=== PATIENT | male | born 1960 | race American Indian/Alaskan Native ===

== ENCOUNTER 2017-12-09 07:59 | Emergency (ER) | payer MEDICAID ==
[2017-12-09 08:07] VITALS: BMI 23.4
--- NOTE | 2017-12-09 08:07 | ED PDOC ---
Arrival/HPI - General Chief Complaint: Chest Pain Time Seen by Provider: 12/09/17 08:03 Historian: Patient, EMS - History of Present Illness Narrative History of Present Illness (Text): 12/09/17 08:17 pt p/w + 1 day onset of left chest pain, + sob, similar to his prior COPD exacerbation; pt states in addition, as he was getting up to go obtain his methadone this morning, pt accidentally slipped while walking down a flight of stairs and falling nearly half of those steps; pt states that made the left sided chest pain worse; pt denied radiation of chest pain; pt states pain is now severe, pt denied pre/post LOC, pt states no neck pain, no fever/chills/ sweats, no new coughing, no wheezing, no abd pain, no n/v, no numbness/tingling , no urinary/bowel changes, no sick contact, no travel; pt + mild dizziness/ lightheadedness, no LOC; pt is here for further eval pt's without other complaints PCP: Dr Alatorre ([place]) ID doctor as well; last viral load was undetectable (~ 3months ago) pt quit smoking some years ago pt is on methadone program Time/Duration: 24 hours Symptom Onset: Sudden Symptom Course: Unchanged Quality: Tightness, Stabbing Severity Level: Severe Activities at Onset: Other (walking) Context: Exertion, Home Past Medical History - Provider Review Nursing Documentation Reviewed: Yes - Travel History Have you recently traveled outside [place] w/in the past 3 mons?: No - Past History Past History: No Previous - Infectious Disease Hx of Infectious Diseases: None - Tetanus Immunization Tetanus Immunization: Unknown Family/Social History - Physician Review Nursing Documentation Reviewed: Yes Family/Social History: No Known Family HX Smoking Status: Former Smoker Hx Alcohol Use: No Hx Substance Use: Yes Hx Substance Use Treatment: Yes (on methadone) Allergies/Home Meds Allergies/Adverse Reactions: Allergies No Known Allergies Allergy (Verified 12/09/17 08:06) Review of Systems - Review of Systems Constitutional: Fatigue Eyes: Normal ENT: Normal Respiratory: SOB. absent: Cough Cardiovascular: Chest Pain Gastrointestinal: Normal Genitourinary Male: Normal Musculoskeletal: Normal Skin: Normal Neurological: Dizziness Endocrine: Normal Hemo/Lymphatic: Normal Physical Exam - Physical Exam Narrative Physical Exam (Text): 12/09/17 08:22 General: alert/awake, GCS = 15, oriented x 3, resting in bed, uncomfortable, cooperative, interactive; mild distress due to pain Head: NC/AT EYE: PERRLA, EOMI, sclera anicteric, no nystagmus, no photophobia; visual field intact b/l Facial: WNL Oral: uvula/tongue are midline, no exudate/lesions, no drooling/stridor, no dysphonia; intact dentitions; mild dry oral mucosa NECK: intact ROM, no midline tenderness, no nuchal rigidity, no meningeal signs ; no step off Chest: CTA b/l, no w/r/r; no tachypenia, no accessory muscle use noted; decr BS noted Chest Wall: faint left chest wall tenderness, no gross deformities, no crepitus , no lesions/rashes noted Cardiac: +S1, +S2, no m/r/r, no tachycardia Abdominal: +BS, soft/nd/nt, well nourished patient; no masses/rebound/guarding/ rigidity; no fountain's sign, no mcburney's point tenderness Extremities: intact ROM, strength 5/5 grossly intact in all limbs, neurovasc intact b/l; + ambulatory; reflex +2/2; no pitting edema noted b/l, no garth's sign b/l BACK: no step off, no midline tenderness, NO crepitus, no gross deformities noted; Intact ROM SKIN: cap refill < 1 sec, no ulcerations, no petechiae, no rashes; no gross pallor NEURO: CNII-XII WNL, no facial asymmetries, no slurr speech, oriented x 3 NIH stroke scale ~ 0 Psych: normal insight, normal affect; follows command with ease Vital Signs Reviewed: Yes Vital Signs Temp Pulse Pulse Resp BP BP Pulse Ox 12/09/17 11:37 98.0 F 81 19 98 12/09/17 10:16 80 20 116/81 94 L 12/09/17 08:18 89 109/73 12/09/17 08:17 98.0 F 91 H 18 109/73 93 L Temperature: Afebrile Blood Pressure: Normal Pulse: Regular Respiratory Rate: Normal Appearance: Positive for: Well-Appearing, Uncomfortable. No: Ill-Appearing, Unkept Pain Distress: Mild Mental Status: Positive for: Alert and Oriented X 3 - Systems Exam Head: Present: Atraumatic, Normocephalic Medical Decision Making ED Course and Treatment: 12/09/17 08:05 Impression: left chest pain, sob, fall down a flight of steps i have consider all the differential diagnosis regarding pt's chief medical complaints/clinical findings, including but are not limited to: left chest pain , sob, fall down a flight of steps A/P: left chest pain, sob, fall down a flight of steps - xray - labs - acs eval - supportive care - observe/reevaluation 12/09/17 09:25 pt is requesting methadone, but is informed that the Emergency department at [facility] does not offer methadone pt is deciding on what to do after prolonged discussion, pt is now willing to stay and receive treatment pt is made aware that once he is admitted, for his medical complaints, that the inpatient doctors should be able to prescribe patient methadone; pt expressed understanding, and is now willing to stay for further eval/exam nursing was unable to place an iv, i was able to place on with pt's verbal consent to his right EJ; however was unable to obtain blood work. Both nursing staff and myself attempted to withdraw blood but were unsuccessful. Plan is to hydrate patient and attempt again. I obtained right EJ IV (20gauge), pt tolerated the procedure well 12/09/17 10:45 dental laboratory assistant present in emergency room also attempted but failed to obtain blood work. I and the nurse spoke with patient, recommending femural vein stick due to difficulty obtaining line and by withdrawing blood from large vein, who should be successful. Patient refused, and becoming angry and agitated. He states "you guys keep poking me and I don't feel well." Continues to request Methadone throughout this interaction. States he needs to eat and have Methadone to have blood test done. 12/09/17 11:34 Patient remains angry, agitated and belligerent. He is asking for IV to be withdrawn and states he wants to leave. However, patient is refusing to sign out against medical advise. He states "I am not signing out against medical advise, I am signing out against your advise." Patient threatening to litigate/ alm me. pt states he still needs his methadone and he doesnt feel well. Patient subsequently walked out of the emergency room. The patient is choosing to leave against medical advice. I have personally explained to the patient that choosing to do so may result in permanent bodily harm or . I have discussed at great length that without further evaluation and monitoring there may be unforeseen circumstances and/or deterioration causing permanent bodily harm or as a result of their choice. The patient is alert, oriented, and shows the mental capacity to make clear decisions regarding the patients health care at this time. The patient continues to wish to leave against medical advice. In light of the patients decision to leave against medical advice, follow-up has been arranged and the patient is aware of the importance to following up as instructed. The patient has been advised that they should return to the emergency room immediately if they change their mind at any time, or if their condition begins to change or worsen in any way.. pt left the ED premise as a result without signing the AMA form nurse and I signed the AMA Re-evaluation Time: 11:45 Reassessment Condition: Unchanged - Lab Interpretations I have reviewed the lab results: Yes (PT REFUSED LABS) - RAD Interpretation Narrative RAD Interpretations (Text): Report Date : 12/09/2017 10:50:47 PROCEDURE: Radiographs of the Chest and Left Ribs. Dictator : Gerson Mcmillan MD IMPRESSION: Unremarkable radiographs of the chest and left ribs. No left rib fracture. Radiology Orders: 12/09/17 08:15 RIBS LEFT & PA CHEST [RAD] Stat Rental Sales Representative: Radiologist - EKG Interpretation EKG Interpretation (Text): 12/09/17 08:25 NSR at 90 bpm, normal axis, no ectopy, pronounced P wave, non-specific st-t changes, ABNL EKG; no old ekg to compare with Interpreted by ED Physician: Yes Type: 12 lead EKG Comparison: No previous EKG avail. - Medication Orders Current Medication Orders: Discontinued Medications Albuterol/Ipratropium (Duoneb 3 Mg/0.5 Mg (3 Ml) Ud) 3 ml IH Q15M NIKO Stop: 12/09/17 09:01 Last Admin: 12/09/17 10:20 Dose: Not Given Non-Admin Reason: Patient Refused Aspirin (Aspirin) 325 mg PO STAT STA Stop: 12/09/17 08:15 Last Admin: 06/08/18 10:09 Dose: 325 mg Clonidine HCl (Catapres) 0.2 mg PO STAT STA Stop: 12/09/17 09:34 Last Admin: 12/09/17 10:16 Dose: Not Given Non-Admin Reason: Blood Sugar Parameter Famotidine (Pepcid) 20 mg PO STAT STA Stop: 12/09/17 09:33 Last Admin: 12/09/17 10:04 Dose: 20 mg Methylprednisolone (Solu-Medrol) 125 mg IVP STAT STA Stop: 12/09/17 08:17 Last Admin: 12/09/17 10:07 Dose: 125 mg IVP Administration Document 12/09/17 10:07 [email or web address] (Rec: 12/09/17 10:07 [email or web address] [id number]) Charges for Administration # of IVP Administrations 1 Nitroglycerin (Nitro-Bid 2% Oint) 1 ea TOP STAT STA Stop: 12/09/17 08:15 Last Admin: 12/09/17 10:08 Dose: 1 ea Ondansetron HCl (Zofran Inj) 8 mg IVP STAT STA Stop: 12/09/17 09:33 Last Admin: 12/09/17 10:04 Dose: 8 mg IVP Administration Document 12/09/17 10:04 [email or web address] (Rec: 12/09/17 10:04 [email or web address] [id number]) Charges for Administration # of IVP Administrations 1 Disposition/Present on Arrival - Present on Arrival Any Indicators Present on Arrival: No History of DVT/PE: No History of Uncontrolled Diabetes: No Urinary Catheter: No History of Decub. Ulcer: No - Disposition Have Diagnosis and Disposition been Completed?: No Diagnosis: Chest pain, Shortness of breath, Narcotic addiction Disposition: AGAINST MEDICAL ADVICE Disposition Time: 11:45 Condition: STABLE Discharge Instructions (ExitCare): Chest Pain (ED) Print Language: ARMENIAN Additional Instructions: you are leaving against medical advice potential life-threatening illness remains and pt can lose limb/or worse case, can you are to see your doctor as soon as possible if you change your mind, you are encouraged to return to ED immediately for further care/management Forms: [employer] (Upper Sor[place])
[2017-12-09] MEDS ORDERED: Nitroglycerin 2% Ointment Foilpak UD TOP STA (08:14)
[2017-12-09 08:18] VITALS: TEMP 98
[2017-12-09] MEDS: Albuterol-Ipratrop 3 mg / 0.5 (3 ml) UD IH SCH ×3 (09:45→10:20)
[2017-12-09 10:17] VITALS: BP 116/81
--- NOTE | 2017-12-09 10:52 | RAD ---
PROCEDURE: Radiographs of the Chest and Left Ribs. HISTORY: chest pain, also fell down half flight of stairs COMPARISON: None available. TECHNIQUE: Frontal radiograph of the chest and multiple oblique radiographs of the left ribs were obtained. FINDINGS: LEFT RIBS: No fracture or focal lesion visualized. LUNGS: Clear. PLEURA: No pneumothorax or pleural fluid. CARDIOVASCULAR: Normal sized heart. No pulmonary vascular congestion. OTHER FINDINGS: None. IMPRESSION: Unremarkable radiographs of the chest and left ribs. No left rib fracture.
[2017-12-09 11:38] VITALS: PULSE 81; RESP 19; O2SAT 98
--- NOTE | 2017-12-09 14:21 | CARD ---
APPROVED REPORT EKG Measurement Heart [id number] <Conclusion> Normal sinus rhythm PRWP Nonspecific T wave abnormality
== END 2017-12-09 11:38 | disposition left against medical advice (07) ==
LOC: MERGE 07:59 → ED 07:59
DX: R07.9 Chest pain, unspecified (principal); F11.20 Opioid dependence, uncomplicated; R06.02 Shortness of breath; Z87.891 Personal history of nicotine dependence
CPT/HCPCS: 71101; 93005; 96374; 96375; 99284; J2405; J2930